=== PATIENT | male | born 1970 | race Asian ===

== ENCOUNTER 2017-06-13 15:40 | Inpatient (IN) | payer SELFPAY ==
[~2017-06-13] VITALS: Ht 182.9 cm; Wt 77.1 kg
[2017-06-13] MEDS ORDERED: ASPIRIN 81 MG CHEW PO ONE (15:55)
[2017-06-13] MEDS ORDERED: NS(*) 0.9% 1000 ML BAG 1,000 ML IV ONE (15:55)
[2017-06-13] MEDS ORDERED: ONDANSETRON 4 MG/2 ML VIAL IVP ONE (15:55)
[2017-06-13] MEDS ORDERED: fentaNYL CITR 100 MCG/2 ML AMP IVP ONE ×2 (15:55→16:35)
--- NOTE | 2017-06-13 16:04 | ER Report ---
History and Physical Time Seen By MD: 15:48 Hx. of Stated Complaint: pt has chest pain yesterday; today pain started in his back HPI/ROS CHIEF COMPLAINT: Chest pain HISTORY OF PRESENT ILLNESS: This is a 46-year-old male who presents to the emergency department for chest pain. The patient states the chest pain began while he was in [place] yesterday progressively getting worse. Today the pain was so intense it started causing some discomfort in his back and shortness of breath, he decided to come in for evaluation. The patient arrives holding his left chest, grimacing. The pain seems to be intermittent. He does state that he has had some chills no fevers. The patient denies nausea or vomiting. No abdominal pain, diarrhea or urinary symptoms. REVIEW OF SYSTEMS: Constitutional: As above. Eyes: No discharge. ENT: No sore throat. Cardiovascular: As above. Respiratory: As above. Gastrointestinal: No abdominal pain, no vomiting. Genitourinary: No hematuria. Musculoskeletal: As above. Skin: No rashes. Neurological: No headache. Allergies: Coded Allergies: No Known Drug Allergies (Unverified , 06/13/17) Home Meds No Active Prescriptions or Reported Meds Past Medical/Surgical History Patient has no significant past medical or surgical history. Reviewed Nurses Notes: Yes Hx Substance Use Disorder: No Hx Alcohol Use: No Constitutional Vital Sign - Last 24 Hours 06/13/17 06/13/17 06/13/17 06/13/17 15:44 15:44 15:45 15:50 Temp 99.3 Pulse 109 104 103 Resp 19 57 B/P (MAP) 166/100 166/100 (122) Pulse Ox 95 93 94 O2 Delivery Room Air 06/13/17 06/13/17 06/13/17 06/13/17 15:55 16:00 16:05 16:10 Pulse 101 100 100 95 Resp 34 37 37 29 B/P (MAP) 136/88 (104) Pulse Ox 94 95 94 91 06/13/17 06/13/17 06/13/17 06/13/17 16:15 16:20 16:25 16:30 Pulse 98 97 98 95 Resp 45 49 B/P (MAP) 126/77 (93) Pulse Ox 89 87 88 89 06/13/17 06/13/17 06/13/17 06/13/17 16:35 16:40 16:45 16:50 Pulse 99 95 99 104 Resp 143 Pulse Ox 88 89 89 89 06/13/17 06/13/17 06/13/17 06/13/17 16:55 17:00 17:00 17:05 Pulse 97 98 99 B/P (MAP) 106/67 (80) Pulse Ox 87 93 93 O2 Flow Rate 1.5 06/13/17 06/13/17 06/13/17 06/13/17 18:00 18:05 18:30 18:35 Pulse 89 84 B/P (MAP) 121/76 (91) 128/82 (97) Pulse Ox 95 94 06/13/17 06/13/17 19:00 19:05 Pulse 81 B/P (MAP) 115/76 (89) Intake and Output 06/13/17 06/13/17 06/14/17 15:00 23:00 07:00 Intake Total 1000 ml Balance 1000 ml Physical Exam General Appearance: The patient is alert, has no immediate need for airway protection and no signs of toxicity, anxious and grimacing Eyes: Pupils equal and round no pallor or injection. ENT, Mouth: Mucous membranes are moist. Respiratory: There are no retractions, diminished left lower lung sounds, all other june clear to auscultation. Cardiovascular: Regular rate and rhythm, no murmurs, clicks or rubs. No carotid bruits Gastrointestinal: Abdomen is soft and non tender, no masses, bowel sounds normal. Neurological: Alert and oriented 4. Moving all extremities. Following all commands. No focal neuro deficits. Skin: Warm and dry, no rashes. Musculoskeletal: Neck is supple non tender. Extremities are nontender, nonswollen and have full range of motion. DIFFERENTIAL DIAGNOSIS: After history and physical exam differential diagnosis was considered for chest pain including but not limited to myocardial ischemia, pericarditis pulmonary embolus, chest wall pain, pleural inflammation and pulmonary infectious causes. Medical Decision Making Data Points Result Diagram: 06/13/17 1547 06/13/17 1547 Laboratory Hematology Test 06/13/17 15:47 06/13/17 15:50 06/13/17 18:15 06/13/17 18:22 Red Blood Count 5.40 M/uL (4.00-5.60) Mean Corpuscular Volume 88.1 fL (80.0-96.0) Mean Corpuscular Hemoglobin 30.5 pg (26.0-33.0) Mean Corpuscular Hemoglobin Concent 34.7 g/dL (32.0-36.0) Red Cell Distribution Width 12.7 % (11.5-14.5) Mean Platelet Volume 7.3 fL (7.2-11.1) Neutrophils (%) (Auto) 83.5 % (39.4-72.5) Lymphocytes (%) (Auto) 7.9 % (17.6-49.6) Monocytes (%) (Auto) 8.4 % (4.1-12.4) Eosinophils (%) (Auto) 0.1 % (0.4-6.7) Basophils (%) (Auto) 0.1 % (0.3-1.4) Nucleated RBC Relative Count (auto) 0.2 /100WBC Neutrophils # (Auto) 17.5 K/uL (2.0-7.4) Lymphocytes # (Auto) 1.7 K/uL (1.3-3.6) Monocytes # (Auto) 1.8 K/uL (0.3-1.0) Eosinophils # (Auto) 0.0 K/uL (0.0-0.5) Basophils # (Auto) 0.0 K/uL (0.0-0.1) Nucleated RBC Absolute Count (auto) 0.04 K/uL Peripheral Blood Smear Yes Y/N Sodium Level 135 mmol/L (137-145) Potassium Level 3.7 mmol/L (3.5-5.0) Chloride Level 99 mmol/L (98-107) Carbon Dioxide Level 23 mmol/L (22-30) Blood Urea Nitrogen 16 mg/dl (9-21) Creatinine 1.00 mg/dl (0.66-1.25) Glomerular Filtration Rate Calc > 60.0 Random Glucose 120 mg/dl (75-110) Calcium Level 9.0 mg/dl (8.4-10.2) Total Bilirubin 1.5 mg/dl (0.2-1.3) Aspartate Amino Transf (AST/SGOT) 23 U/L (0-35) Alanine Aminotransferase (ALT/SGPT) 54 U/L (0-56) Alkaline Phosphatase 95 U/L (0-126) Troponin I < 0.012 ng/ml Total Protein 8.3 gm/dl (6.3-8.2) Albumin 4.5 g/dl (3.5-5.0) Influenza Type A Antigen Negative (NEGATIVE) Influenza Type B Antigen Negative (NEGATIVE) Lactate 1.5 mmol/L (0.7-2.1) Urine Color Yellow Urine Clarity Clear Urine pH 6.0 pH (4.8-9.5) Urine Specific [place] 1.027 Urine Protein Negative mg/dL (NEGATIVE) Urine Glucose (UA) Negative mg/dL (NEGATIVE) Urine Ketones Negative mg/dL (NEGATIVE) Urine Blood Negative (NEGATIVE) Urine Nitrite Negative (NEGATIVE) Urine Bilirubin Negative (NEGATIVE) Urine Urobilinogen Negative mg/dL (0.2-1.9) Urine Leukocyte Esterase Negative (NEGATIVE) Urine RBC <1 /HPF (0-2/HPF) Urine WBC 1 /HPF (0-5/HPF) Urine Squamous Epithelial Cells None /LPF (</=FEW) Urine Bacteria Negative /HPF (NONE-FEW) Urine Mucus Few /HPF (NONE-FEW) Chemistry Test 06/13/17 15:47 06/13/17 15:50 06/13/17 18:15 06/13/17 18:22 White Blood Count 21.0 k/uL (4.5-11.0) Red Blood Count 5.40 M/uL (4.00-5.60) Hemoglobin 16.5 g/dL (14.0-18.0) Hematocrit 47.6 % (42.0-52.0) Mean Corpuscular Volume 88.1 fL (80.0-96.0) Mean Corpuscular Hemoglobin 30.5 pg (26.0-33.0) Mean Corpuscular Hemoglobin Concent 34.7 g/dL (32.0-36.0) Red Cell Distribution Width 12.7 % (11.5-14.5) Platelet Count 309 K/uL (150-450) Mean Platelet Volume 7.3 fL (7.2-11.1) Neutrophils (%) (Auto) 83.5 % (39.4-72.5) Lymphocytes (%) (Auto) 7.9 % (17.6-49.6) Monocytes (%) (Auto) 8.4 % (4.1-12.4) Eosinophils (%) (Auto) 0.1 % (0.4-6.7) Basophils (%) (Auto) 0.1 % (0.3-1.4) Nucleated RBC Relative Count (auto) 0.2 /100WBC Neutrophils # (Auto) 17.5 K/uL (2.0-7.4) Lymphocytes # (Auto) 1.7 K/uL (1.3-3.6) Monocytes # (Auto) 1.8 K/uL (0.3-1.0) Eosinophils # (Auto) 0.0 K/uL (0.0-0.5) Basophils # (Auto) 0.0 K/uL (0.0-0.1) Nucleated RBC Absolute Count (auto) 0.04 K/uL Peripheral Blood Smear Yes Y/N Glomerular Filtration Rate Calc > 60.0 Calcium Level 9.0 mg/dl (8.4-10.2) Total Bilirubin 1.5 mg/dl (0.2-1.3) Aspartate Amino Transf (AST/SGOT) 23 U/L (0-35) Alanine Aminotransferase (ALT/SGPT) 54 U/L (0-56) Alkaline Phosphatase 95 U/L (0-126) Troponin I < 0.012 ng/ml Total Protein 8.3 gm/dl (6.3-8.2) Albumin 4.5 g/dl (3.5-5.0) Influenza Type A Antigen Negative (NEGATIVE) Influenza Type B Antigen Negative (NEGATIVE) Lactate 1.5 mmol/L (0.7-2.1) Urine Color Yellow Urine Clarity Clear Urine pH 6.0 pH (4.8-9.5) Urine Specific [place] 1.027 Urine Protein Negative mg/dL (NEGATIVE) Urine Glucose (UA) Negative mg/dL (NEGATIVE) Urine Ketones Negative mg/dL (NEGATIVE) Urine Blood Negative (NEGATIVE) Urine Nitrite Negative (NEGATIVE) Urine Bilirubin Negative (NEGATIVE) Urine Urobilinogen Negative mg/dL (0.2-1.9) Urine Leukocyte Esterase Negative (NEGATIVE) Urine RBC <1 /HPF (0-2/HPF) Urine WBC 1 /HPF (0-5/HPF) Urine Squamous Epithelial Cells None /LPF (</=FEW) Urine Bacteria Negative /HPF (NONE-FEW) Urine Mucus Few /HPF (NONE-FEW) Urinalysis Test 06/13/17 18:22 Urine Color Yellow Urine Clarity Clear Urine pH 6.0 pH (4.8-9.5) Urine Specific [place] 1.027 Urine Protein Negative mg/dL (NEGATIVE) Urine Glucose (UA) Negative mg/dL (NEGATIVE) Urine Ketones Negative mg/dL (NEGATIVE) Urine Blood Negative (NEGATIVE) Urine Nitrite Negative (NEGATIVE) Urine Bilirubin Negative (NEGATIVE) Urine Urobilinogen Negative mg/dL (0.2-1.9) Urine Leukocyte Esterase Negative (NEGATIVE) Urine RBC <1 /HPF (0-2/HPF) Urine WBC 1 /HPF (0-5/HPF) Urine Squamous Epithelial Cells None /LPF (</=FEW) Urine Bacteria Negative /HPF (NONE-FEW) Urine Mucus Few /HPF (NONE-FEW) EKG/Imaging EKG Interpretation 12 lead EKG: Rhythm: Sinus tachycardia with first-degree AV block. 105 BPM. Calvin: normal QRS: normal ST segments: normal It is noted patient has an S1, Q3, T3 on his EKG. Imaging [place] [facility] [place] NAME: Kip Coats : 1970 MR: [id number] V: [id number] EXAM DATE: ORDERING PHYSICIAN: HERON COLÓN TECHNOLOGIST: Location: [facility] Patient: Kip Coats : 1970 Visit/Account:[id number] Date of Sevice: 06/13/2017 EXAMINATION: CTA of the chest with IV contrast HISTORY: Evaluate for pulmonary embolism. Tachycardia. Abnormal EKG. COMPARISON: None. TECHNIQUE: Pulmonary embolus protocol - Thin-slice axial imaging of the chest was performed during maximal pulmonary arterial opacification with intravenous nonionic iodinated contrast. 3D coronal slab MIPs and 2D reconstructions in the coronal and sagittal planes were performed to aid in pulmonary embolus detection. Assistant Operations Manager images have been stored on PACS. CONTRAST: 150 mL of IV Isovue-370 One of the following dose optimization techniques was utilized in the performance of this exam: Automated exposure control; adjustment of the mA and/ or kV according to the patient's size; or use of an iterative reconstruction technique. Specific details can be referenced in the facility's radiology CT exam operational policy. FINDINGS: CTA CHEST: Please note that this exam is optimized for assessment of the pulmonary arteries and is not intended as a diagnostic study of the thoracic aorta, coronary arteries or venous structures. Angiographic Findings: Pulmonary arteries: Images are degraded by respiratory motion artifact and mixing artifact, despite repeat attempt. No definite filling defect is seen within the pulmonary arteries. Other vasculature: Negative. Additional non-angiographic findings: Lungs / Pleura: Small left pleural effusion measuring 2.7 cm in thickness. Atelectasis in the left lung base along the pleural effusion. Mediastinum / Lou: Negative. Heart / Pericardium: Small pericardial effusion. Musculoskeletal / Body wall: Negative. Lymph node assessment: Negative. Upper abdomen: Negative. Lower neck: Negative. IMPRESSION: Images are degraded by motion artifact and contrast mixing artifact which limits evaluation. No definite evidence of pulmonary embolism. Small left pleural effusion with atelectasis in the adjacent left lung base. Underlying infiltrate/pneumonia in the left lung base is not excluded. Small pericardial effusion. Report Dictated By: Claudio Rubi MD at 06/13/2017 5:52 PM Report E-Signed By: Claudio Rubi MD at 06/13/2017 6:15 PM [id number] ED Course/Re-evaluation Clinical Indication for ER IV: Hydration, IV Access ED Course The patient was admitted to a room. A history physical were obtained. Differential diagnoses considered. An IV was started. A 1 L normal saline bolus was given. A CBC, CMP, troponin, lactate, blood cultures and UA were obtained. CBC showing 21,000 white count with a left shift, negative troponin. Negative influenza, negative UA. The patient was given 50 g IV fentanyl 2, 4 mg IV Zofran, 0.5 mg Dilaudid, 15 mg IV Toradol. Patient was also given 325 mg baby aspirin. As well as nitroglycerin. Patient was also given a GI cocktail. EKG showing a first-degree AV block, no ST changes, sinus tachycardia. Patient did have intermittent relief with medications. A CTA showing a left pleural effusion , atelectasis, possible pneumonia, and a small pericardial effusion. I did review the CT and laboratory results with the patient. The patient was willing to admit to the hospital. I did speak with Dr. Souza as noted below and the patient was admitted to the medical surgical unit for observation. I did not start patient on antibiotics at this time. At the time of admission the patient was more comfortable, and less anxious. The patient had no other questions or concerns at the time of admission. 06/13/2017 6:39:42 pm to Souza regarding the patient's case, he will come down and talk with the patient's and evaluate the patient for a possible admission. He also suggested trying a GI cocktail. 06/13/2017 7:26:45 pm Souza did come down to evaluate the patient and has elected to patient to the medical surgical unit. Decision to Disposition Date: Jun 13, 2017 Decision to Disposition Time: 19:26 Depart Departure Latest Vital Signs Vital Signs Date Time Temp Pulse Resp B/P (MAP) Pulse Ox O2 Delivery O2 Flow Rate FiO2 06/13/17 19:05 81 06/13/17 19:00 115/76 (89) 06/13/17 18:35 94 06/13/17 17:00 1.5 06/13/17 16:50 143 06/13/17 15:44 99.3 Room Air Impression: Primary Impression: Pleurisy Condition: Improved Disposition: Admitted from ER New Scripts No Active Prescriptions or Reported Meds HERON COLÓN PURCHASE REQUEST EDITOR-BC Jun 13, 2017 16:03
[2017-06-13] MEDS ORDERED: NS 0.9% 50 ML VIAL 100 ML ONE ×2 (16:08→17:45)
[2017-06-13] MEDS ORDERED: IOPAMIDOL 76% 75 ML INFUS BTL 75 ML ONE ×2 (16:08→17:45)
[2017-06-13 16:11] LABS: PLATELET COUNT, AUTOMATED 309 K/uL (150-450)
[2017-06-13] MEDS ORDERED: KETOROLAC 15 MG/ML VIAL IVP ONE (16:35)
[2017-06-13] MEDS ORDERED: NITROGLYCERIN 0.4 MG SUBL SL ONE (16:50)
--- NOTE | 2017-06-13 17:17 | EKG ---
FACILITY: [facility] PATIENT NAME: LINDSAY JONES : [id number] MR: [id number] V: [id number] EXAM DATE: ORDERING PHYSICIAN: HERON COLÓN TECHNOLOGIST: Test Reason : CARDIA Blood Pressure : / mmHG Vent. Rate : 105 BPM Atrial Rate : 105 BPM P-R Int : 212 ms QRS Dur : 104 ms QT Int : 336 ms P-R-T Axes : 046 002 018 degrees QTc Int : 444 ms Sinus tachycardia with 1st degree AV block Otherwise normal ECG No previous ECGs available Confirmed by LOU JOHNSON ([id number]) on 06/14/2017 6:38:58 AM Referred By: Confirmed By:LOU JOHNSON
--- NOTE | 2017-06-13 18:19 | RADIOLOGY IMAGING REPORT ---
FACILITY: [facility] PATIENT NAME: Kip Coats : 1970 MR: [id number] V: [id number] EXAM DATE: ORDERING PHYSICIAN: HERON COLÓN TECHNOLOGIST: Location: [facility] Patient: Kip Coats : 1970 Visit/Account:[id number] Date of Sevice: 06/13/2017 EXAMINATION: CTA of the chest with IV contrast HISTORY: Evaluate for pulmonary embolism. Tachycardia. Abnormal EKG. COMPARISON: None. TECHNIQUE: Pulmonary embolus protocol - Thin-slice axial imaging of the chest was performed during maximal pulmonary arterial opacification with intravenous nonionic iodinated contrast. 3D coronal sla b MIPs and 2D reconstructions in the coronal and sagittal planes were performed to aid in pulmonary e mbolus detection. Master Baker images have been stored on PACS. CONTRAST: 150 mL of IV Isovue-370 One of the following dose optimization techniques was utilized in the performance of this exam: Autom ated exposure control; adjustment of the mA and/or kV according to the patient's size; or use of an i terative reconstruction technique. Specific details can be referenced in the facility's radiology C T exam operational policy. FINDINGS: CTA CHEST: Please note that this exam is optimized for assessment of the pulmonary arteries and is not intended as a diagnostic study of the thoracic aorta, coronary arteries or venous structures. Angiographic Findings: Pulmonary arteries: Images are degraded by respiratory motion artifact and mixing artifact, despite r epeat attempt. No definite filling defect is seen within the pulmonary arteries. Other vasculature: Negative. Additional non-angiographic findings: Lungs / Pleura: Small left pleural effusion measuring 2.7 cm in thickness. Atelectasis in the left lung base along the pleural effusion. Mediastinum / Lou: Negative. Heart / Pericardium: Small pericardial effusion. Musculoskeletal / Body wall: Negative. Lymph node assessment: Negative. Upper abdomen: Negative. Lower neck: Negative. IMPRESSION: Images are degraded by motion artifact and contrast mixing artifact which limits evaluation. No defin ite evidence of pulmonary embolism. Small left pleural effusion with atelectasis in the adjacent left lung base. Underlying infiltrate/pn eumonia in the left lung base is not excluded. Small pericardial effusion. Report Dictated By: Claudio Rubi MD at 06/13/2017 5:52 PM Report E-Signed By: Claudio Rubi MD at 06/13/2017 6:15 PM [id number]
[2017-06-13] MEDS ORDERED: MAG HYD/AL HYD/SIMETH 30ML UDC PO ONE (18:40)
[2017-06-13] MEDS ORDERED: LIDOCAINE 2% VISC SLN 15ML UDC PO ONE (18:40)
[2017-06-13] MEDS ORDERED: HYDROmorphone(ER ONLY) 1 MG/ML IVP ONE (18:55)
[2017-06-13] MEDS ORDERED: NALOXONE HCL 0.4 MG/ML VIAL IVP PRN (19:30)
[2017-06-13] MEDS ORDERED: ACETAMINOPHEN 500 MG TAB PO PRN (19:30)
--- NOTE | 2017-06-13 19:59 | History & Physical ---
History of Present Illness History of Present Illness 46yo male with no significant PMHx who came to the ER for pleuritic chest pain. About a week ago, he had 2 days of a cough and chills. He then got better. He was doing well yesterday afternoon, but at about 9pm he developed chest pain. It starts on the left but goes across to the right in front and is across the whole back. It is much worse with coughing. He had progressively worsening pain throughout the day today. He has had some chills today. No reported n/v/diarrhea. No sick contacts. He doesn't smoke. 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 In the ER, he received Toradol, NTG, Fentanyl x2, Dilaudid, ASA and a GI cocktail. He certainly had improvement with the narcotic medication, but it is unclear if the Toradol helped because it was given at the same time as one dose of Fentanyl. History Home Meds No Active Prescriptions or Reported Meds Allergies: Coded Allergies: No Known Drug Allergies (Unverified , 06/13/17) Other Social/Family Hx See HPI. No tobacco or alcohol use. Hx Alcohol Use: No Review of Systems All Systems Reviewed/Normal: Yes, Except as Noted Exam Vital Signs Vital Signs Date Time Temp Pulse Resp B/P (MAP) Pulse Ox O2 Delivery O2 Flow Rate FiO2 06/13/17 19:30 111/68 (82) 06/13/17 19:05 81 06/13/17 18:35 94 06/13/17 17:00 1.5 06/13/17 16:50 143 06/13/17 15:44 99.3 Room Air General Appearance: Alert, Awake, Other (Taking shallow breaths. Looks mildly uncomfortable, but with coughing he is more uncomforable.) Neuro: No Gross deficits Eyes: PERRLA ENT: Moist Mucous Membranes Cardiovascular: Regular Rate and Rhythm (no m/r/g) Respiratory: Clear to Auscultation (But not taking deep breaths. Moving air fairly well for the shallow breaths.) GI: Abd Soft and Non-Tender Extremities: No Edema Integumentary: No Jaundice, No Cyanosis Medical Decision Making Data Points Result Diagram: 06/13/17 1547 06/13/17 1547 Item Value Date Time Lactate 1.5 mmol/L 06/13/17 1815 Calcium Level 9.0 mg/dl 06/13/17 1547 Total Bilirubin 1.5 mg/dl H 06/13/17 1547 Aspartate Amino Transf (AST/SGOT) 23 U/L 06/13/17 1547 Alanine Aminotransferase (ALT/SGPT) 54 U/L 06/13/17 1547 Alkaline Phosphatase 95 U/L 06/13/17 1547 Troponin I < 0.012 ng/ml 06/13/17 1547 White Blood Count 21.0 k/uL H 06/13/17 1547 Neutrophils (%) (Auto) 83.5 % H 06/13/17 1547 Lymphocytes (%) (Auto) 7.9 % L 06/13/17 1547 Monocytes (%) (Auto) 8.4 % 06/13/17 1547 Eosinophils (%) (Auto) 0.1 % L 06/13/17 1547 Basophils (%) (Auto) 0.1 % L 06/13/17 1547 Neutrophils # (Auto) 17.5 K/uL H 06/13/17 1547 Nucleated RBC Relative Count (auto) 0.2 /100WBC 06/13/17 1547 Hemoglobin 16.5 g/dL 06/13/17 1547 Mean Corpuscular Volume 88.1 fL 06/13/17 1547 Platelet Count 309 K/uL 06/13/17 1547 Influenza Type A Antigen Negative 06/13/17 1550 Influenza Type B Antigen Negative 06/13/17 1550 Urine RBC <1 /HPF 06/13/17 1822 Urine WBC 1 /HPF 06/13/17 1822 Urine Nitrite Negative 06/13/17 1822 Urine Specific [place] 1.027 06/13/17 1822 EKG / Imaging EKG Interpretation Sinus tachycardia. No ST abnormalities. T flattening/inversion inferiorly. Imaging CTA of chest - Images are degraded by motion artifact and contrast mixing artifact which limits evaluation. No definite evidence of pulmonary embolism. Small left pleural effusion with atelectasis in the adjacent left lung base. Underlying infiltrate/pneumonia in the left lung base is not excluded. Small pericardial effusion. Assessment and Plan Problems: (1) Pleurisy Status: Acute Assessment & Plan: He presented with pleuritic chest pain that is worse on the left but bilateral with a CT showing a small left sided effusion and infiltrate on the left. There is a small pericardial effusion. His symptoms started about 24 hours prior to admission. No PE and troponin is negative. ECG with only tachycardia and T flattening inferiorly. He had an URI about for 2 days about a week ago. He did have chills and an elevated WBC today. He doesn't appear toxic and the pericardial effusion is likely reactive rather than empyema. Will follow symptoms and he might need a chest tube if he doesn't improve or worsens. 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 CRP in the morning. (2) Pneumonia Status: Acute Assessment & Plan: On CT it appears that he has a left sided basilar infiltrate. He has an elevated WBC. BP is stable. P is borderline high with pain. Afebrile. Ceftriaxone IV and PO azithromycin. Recheck labs in the morning. Venous Thromboembolism Antithrombotics Is Pt On Any Antithrombotics?: No Exam Sepsis Risk: No Definite Risk LOU JOHNSON MD Jun 13, 2017 19:59
[2017-06-13 20:11] VITALS: BP 132/78
[2017-06-13] MEDS: MORPHINE 1 MG/ML 30 ML PCA IV PRN (20:37)
[2017-06-13] MEDS: cefTRIAXone 2 GM VIAL IVP SCH (20:49)
[2017-06-13] MEDS ORDERED: AZITHROMYCIN 250 MG TAB PO SCH (21:00)
[2017-06-13 22:38] VITALS: BP 129/79
[2017-06-13] MEDS: KETOROLAC 30 MG/ML VIAL IVP SCH (23:41)
[2017-06-14] MEDS: KETOROLAC 30 MG/ML VIAL IVP SCH ×4 (04:22→22:36)
[2017-06-14] MEDS: MORPHINE 1 MG/ML 30 ML PCA IV PRN ×2 (04:22→22:35)
[2017-06-14 04:24] VITALS: BP 106/73
[2017-06-14 05:57] LABS: PLATELET COUNT, AUTOMATED 234 K/uL (150-450)
[2017-06-14 07:52] VITALS: BP 109/68
[2017-06-14] MEDS ORDERED: methylPREDNIS SUCC 125 MG/2ML IVP ONE (09:15)
[2017-06-14] MEDS: ENOXAPARIN 40 MG/0.4ML SYR SC SCH (09:24)
--- NOTE | 2017-06-14 09:28 | Hospitalist Progress Note ---
Subjective Progress Notes Subjective Still having significant pain. Unable to take deep breaths effectively. No significant fever this AM. Physical Exam Vital Signs Date Time Temp Pulse Resp B/P (MAP) Pulse Ox O2 Delivery O2 Flow Rate FiO2 06/14/17 08:15 92 Nasal Cannula 1.0 06/14/17 07:52 98.7 84 22 109/68 (82) General Appearance: Alert, Awake Neuro: No Gross deficits ENT: Oropharynx Clear Cardiovascular: Regular Rate and Rhythm Respiratory: Other (diminished breath sounds at bases due to poor effort/few rales on left mid-lung field) Chest: No Tenderness GI: Soft and Non-Tender Extremities: Warm, Perfused Psych: Alert & Oriented X3 Result Diagram: 06/14/1751906/14/17519 Assessment and Plan Problems: (1) Pneumonia Status: Acute Assessment & Plan: On CT it appears that he has a left sided basilar infiltrate and small effusion. He had an elevated WBC. No significant fever today. He still has dramatic pain. He is on Ceftriaxone IV and azithromycin. Re -check labs shows improved WBC count. Will re-check CXR to see if any increase in the effusion or infiltrate. Will work on deep breathing exercises. (2) Pleurisy Status: Acute Assessment & Plan: He presented with pleuritic chest pain that is worse on the left with CT showing a small left sided effusion and infiltrate on the left. There is a small pericardial effusion. His symptoms started about 24 hours prior to admission. No PE seen on CT PA and troponin is negative. ECG with only tachycardia and T flattening inferiorly. He had an URI about for 2 days about a week ago. He did have chills and an elevated WBC. He doesn't appear toxic and the pericardial effusion is likely reactive. He is on Morphine BIRD TENDER, scheduled Toradol and APAP prn for pain. Will add IV Solu-Medrol. Work with RT on getting him to take deep breaths/clear secretions. Re-check CXR as well. Exam Sepsis Risk: Sepsis Risk DESI LORENZ MD Jun 14, 2017 09:28
--- NOTE | 2017-06-14 09:38 | Antimicrobial Stewardship ---
Antimicrobial Stewardship MD Service: Hospitalist Indications: CAP, Other (L pleural effusion) Antimicrobial Used Ceftriaxone and Azithromycin started 06/13/17 Duration of Therapy: 5 Days Start Date: Jun 13, 2017 Height (Calculated Centimeters: [phone] Weight (Calculated Kilograms): 83.461 Comments 46 yo M presented with SOB and chest pain, afebrile, WBC were 21 on 06/13/17, today down to 13. CTA ruled out acute PE, showed L pleural effusion and LLL infiltrate. Antibiotics: 06/13/17: Started azithromycin 500mg po daily and ceftriaxone 2g IV daily, recommended treatment duration is 5 days for CAP. 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 Continue present management. Suni Perrin, PharmD, OP SUNI PERRIN Jun 14, 2017 09:38
[2017-06-14 09:41] VITALS: BMI 24.9
--- NOTE | 2017-06-14 11:14 | RADIOLOGY IMAGING REPORT ---
FACILITY: [facility] PATIENT NAME: Kip Coats : 1970 MR: [id number] V: [id number] EXAM DATE: ORDERING PHYSICIAN: DESI LORENZ TECHNOLOGIST: Location: [facility] - [place] Patient: Kip Coats : 1970 Visit/Account:[id number] Date of Sevice: 06/14/2017 Exam type: CHEST PA AND LAT History: LLL infiltrate/effusion Comparison: CTA chest and right 2017. Findings: There is a small left pleural effusion that appears partially loculated in the major fissure. There is increasing airspace consolidation in the left lung base with air bronchograms present when compare d to the CT there also appears to be a small amount of linear stranding the right lung base as well w hich has increased in the interim. The cardiac silhouette is normal in size. IMPRESSION: 1. Small left pleural effusion that appears partially loculated in the major fissure There is increasing airspace consolidation in the lung bases. In the right lung base there is mild l inear consolidation which may represent atelectasis or developing infiltrates. In the left lung base there is a large wedge-shaped area of consolidation concerning for increasing atelectasis and or inf iltrate Report Dictated By: Sakina Naik MD at 06/14/2017 11:05 AM Report E-Signed By: Sakina Naik MD at 06/14/2017 11:08 AM WSN:[email or web address]
[2017-06-14 15:23] VITALS: BP 110/68
--- NOTE | 2017-06-14 19:01 | General Surgery Consultation ---
History of Present Illness Requesting Physician dr hyman Reason for Consult left pleural effusion Chief Complaint left chest pain. History of Present Illness 46 yo male with left chest pain. pt underwent ct which showed a left pleural effusion and atelectasis/ infiltrate. repeat ct shows increase in size of effusion History Home Meds No Active Prescriptions or Reported Meds Allergies: Coded Allergies: No Known Drug Allergies (Unverified , 06/13/17) Exam Vital Signs Vital Signs Date Time Temp Pulse Resp B/P (MAP) Pulse Ox O2 Delivery O2 Flow Rate FiO2 06/14/17 15:23 98.5 85 24 110/68 (82) 91 Nasal Cannula 1.0 General Appearance: Alert, Awake Chest: Other (decreased breath sounds left lung base) Medical Decision Making Data Points Result Diagram: 06/14/17 0520 06/14/17 0520 Assessment and Plan Problems: (1) Pleural effusion, left Assessment & Plan: will try to place a left pleural catheter to drain effusion and analyze the fluid. Copies to: NATHALIE CERNA MD Venous Thromboembolism Antithrombotics Is Pt On Any Antithrombotics?: No NATHALIE CERNA MD Jun 14, 2017 19:01
--- NOTE | 2017-06-14 20:16 | Post Operative Progress Note ---
Post Operative Progress Note Date: Jun 14, 2017 Time: 20:15 Surgeon: pj Anesthesia: local Pre-Op Diagnosis: left pleural effusion Post-Op Diagnosis: same Procedure(s): left pleural drainage catheter placement NATHALIE CERNA MD Jun 14, 2017 20:16
--- NOTE | 2017-06-14 20:22 | RADIOLOGY IMAGING REPORT ---
FACILITY: [facility] - [place] PATIENT NAME: Kip Coats : 1970 MR: [id number] V: [id number] EXAM DATE: ORDERING PHYSICIAN: NATHALIE CERNA TECHNOLOGIST: Location: [facility] [place] Patient: Kip Coats : 1970 Visit/Account:[id number] Date of Sevice: 06/14/2017 Examination: CHEST SINGLE AP Comparison: Earlier the same day. History: Chest tube placement. Findings: A pigtail catheter is now present in the left lower hemithorax. Small but decreased left pl eural effusion with left lung base volume loss versus consolidation. No pneumothorax. No new or enlar ging consolidation on the right. Visualized portions of the cardiac and hilar contour are unchanged. Nonspecific prominent gas-filled loops of bowel in the visualized upper abdomen. Osseous structures a re intact. IMPRESSION: 1. Left chest tube placement with decreased pleural fluid. 2. Left lung base volume loss versus consolidation. 3. No pneumothorax. Report Dictated By: Brad Nicole MD at 06/14/2017 8:14 PM Report E-Signed By: Brad Nicole MD at 06/14/2017 8:18 PM WSN:[id number]
[2017-06-14] MEDS: AZITHROMYCIN(*) 500 MG 500 MG in NS(*) 0.9% 250 ML BAG 250 ML IVPB SCH (20:47)
[2017-06-14] MEDS: cefTRIAXone 2 GM VIAL IVP SCH (20:47)
--- NOTE | 2017-06-14 21:15 | RADIOLOGY IMAGING REPORT ---
FACILITY: [facility] - [place] PATIENT NAME: Kip Coats : 1970 MR: [id number] V: [id number] EXAM DATE: ORDERING PHYSICIAN: DESI LORENZ TECHNOLOGIST: Location: [facility] Patient: Kip Coats : 1970 Visit/Account:[id number] Date of Sevice: 06/14/2017 EXAMINATION: CT chest without IV contrast HISTORY: Empyema, left chest pain. TECHNIQUE: Axial CT images of the chest were obtained without IV contrast, with coronal and sagitta l 2D reconstructed images. One of the following dose optimization techniques was utilized in the performance of this exam: Autom ated exposure control; adjustment of the mA and/or kV according to the patient's size; or use of an i terative reconstruction technique. Specific details can be referenced in the facility's radiology C T exam operational policy. COMPARISON: Chest radiograph of earlier today. CTA chest with contrast 06/13/2017. FINDINGS: Lungs and pleura: There is a complex loculated pleural fluid collection in the posterior left chest, increased in volume from the prior CT of yesterday. This measures up to 4.5 cm in AP thickness poste rior to the left lower lobe, extending from the lung base superior to the level of the major fissure. No visualized pleural gas. There is adjacent consolidation and volume loss in the left lower lobe wh ich may represent a combination of atelectasis and pneumonia. The central airways are patent. There is mild streaky and linear opacity in the right lung base, likely atelectasis, with a trace anuradha unt of right-sided pleural fluid. No pneumothorax. Mediastinum and cherie: Negative. Heart, aorta, and great vessels: Normal caliber thoracic aorta. Normal heart size. No pericardial ef fusion. Chest lymph node assessment: Negative. Bones: Negative. Chest wall: Negative. Lower neck: Negative. Upper abdomen: Fatty infiltration of the liver. IMPRESSION: 1. Complex loculated pleural fluid collection in the posterior left chest. This may be compatible wit h empyema as clinically reported. Volume of pleural fluid has moderately increased since the prior ch est CTA. 2. Adjacent consolidation and volume loss in the left lower lobe may represent a combination of compr essive atelectasis and pneumonia. 3. Mild streaky and linear opacity in the right lung base, likely atelectasis, with a trace amount of right-sided pleural fluid. Report Dictated By: Michael Hsu MD at 06/14/2017 9:04 PM Report E-Signed By: Michael Hsu MD at 06/14/2017 9:11 PM WSN:[id number]
[2017-06-14 23:00] VITALS: BP 114/63
[2017-06-15 03:04] VITALS: BP 127/79
--- NOTE | 2017-06-15 04:14 | OPERATIVE REPORT 1 ---
EVENT DATE: June 14, 2017 SURGEON: Tay Sandoval MD ANESTHESIOLOGIST: None. ANESTHESIA: Local. PREOPERATIVE DIAGNOSIS Left pleural effusion. POSTOPERATIVE DIAGNOSIS Left pleural effusion. PROCEDURE PERFORMED Left pleural catheter placement. DESCRIPTION OF PROCEDURE Patient was placed in the sitting position. Left chest was then examined with the ultrasound by the tech. A good fluid collection was noted laterally posteriorly on the left. This area was then marked. We prepped and draped the skin in sterile fashion, anesthetized the skin with 1% Xylocaine, made a karla in the skin with a #11 blade. We then passed the original catheter into position. The needle was removed and good fluid was returned. We then passed the guide wire. Needle was removed. We then passed the dilator over the guide wire. We dilated to 10 Welsh. We then placed the 10 Welsh pigtail catheter over the guide wire, threaded it into position, removed the guide wire, removed the needle out of the pigtail catheter, advanced the catheter into position. We then pulled on the string to secure the curl in the tip of the catheter. We returned some serous fluid that was a little bloody. We got about 80 mL out. Specimen was sent for culture. We then hooked the catheter to a suction drain, and then portable chest x-ray was obtained to show the catheter in the lower chest. Patient tolerated the procedure well, no apparent complication. [facility]PITAL[facility]
[2017-06-15] MEDS: KETOROLAC 30 MG/ML VIAL IVP SCH ×4 (05:34→22:21)
--- NOTE | 2017-06-15 05:34 | General Surgery Progress Note ---
Subjective Progress Notes Subjective no complaints, pain controlled. slept ok Physical Exam Vital Signs Date Time Temp Pulse Resp B/P (MAP) Pulse Ox O2 Delivery O2 Flow Rate FiO2 06/15/17 03:04 97.8 77 20 127/79 (95) 92 Nasal Cannula 1.0 General Appearance: Alert, Awake, No Acute Distress Chest: Other (drain in place with some serosanguinous drainage.) Result Diagram: 06/14/17 0520 06/14/17 0520 Assessment and Plan Problems: (1) Pleural effusion, left Assessment & Plan: will try to place a left pleural catheter to drain effusion and analyze the fluid. 06/15/17 stable, cxr later this morning, will adjust catheter if necessary. Exam Sepsis Risk: No Definite Risk NATHALIE CERNA MD Jun 15, 2017 05:34
[2017-06-15 06:14] LABS: PLATELET COUNT, AUTOMATED 302 K/uL (150-450)
--- NOTE | 2017-06-15 06:32 | RADIOLOGY IMAGING REPORT ---
FACILITY: [facility] - [place] PATIENT NAME: Kip Coats : 1970 MR: [id number] V: [id number] EXAM DATE: ORDERING PHYSICIAN: NATHALIE CERNA TECHNOLOGIST: Location: [facility] Patient: Kip Coats : 1970 Visit/Account:[id number] Date of Sevice: 06/15/2017 CHEST PA AND LAT COMPARISONS: Single view chest dated June 14, 2017 ADDITIONAL PERTINENT HISTORY: Left-sided effusion FINDINGS: Life-support: Left basilar pigtail catheter in stable position. Cardiomediastinal silhouette: Negative. Pulmonary vasculature: Negative. Lung june: Patchy area of opacity involving the left lung base improved since previous exam likely representing atelectatic change. Pleural spaces: Improved but persistent small left-sided pleural effusion. No pneumothorax noted. Osseous structures: Negative. Surrounding soft tissues: Negative. IMPRESSION: 1. Improved but persistent small left-sided pleural effusion with improving overlying atelectatic sixto nge. 2. No new findings from previous exam. Report Dictated By: Kristian Rosario MD at 06/15/2017 6:24 AM Report E-Signed By: Kristian Rosario MD at 06/15/2017 6:26 AM WSN:[id number]
[2017-06-15 07:15] VITALS: BP 114/75
[2017-06-15] MEDS ORDERED: NS(*) 0.9% 1000 ML BAG 1,000 ML IV PRN (08:30)
--- NOTE | 2017-06-15 08:32 | RADIOLOGY IMAGING REPORT ---
FACILITY: [facility] - [place] PATIENT NAME: Kip Coats : 1970 MR: [id number] V: [id number] EXAM DATE: ORDERING PHYSICIAN: NATHALIE SANDOVAL TECHNOLOGIST: Location: [facility] [place] Patient: Kip Coats : 1970 Visit/Account:[id number] Date of Sevice: 06/14/2017 Exam type: US GUIDANCE FOR THORA/PARA History: chest drain placement Comparison: CT chest June 14, 2017. Findings: Two sonographic images demonstrated a complex fluid collection are submitted for interpretation. Kourtney ges are not labeled although presumably over the left thorax.. A Kristian was placed on the patient's sk in for chest drain placement by Dr. Sandoval. Please see Dr. Sandoval's report for complete detai ls IMPRESSION: 1. As above Report Dictated By: Sakina Naik MD at 06/15/2017 8:25 AM Report E-Signed By: Sakina Naik MD at 06/15/2017 8:28 AM WSN:[email or web address]
[2017-06-15] MEDS: ENOXAPARIN 40 MG/0.4ML SYR SC SCH (09:04)
[2017-06-15] MEDS: predniSONE 20 MG TAB PO SCH (11:10)
[2017-06-15 11:19] VITALS: BP 126/82
[2017-06-15 15:24] VITALS: BP 131/77
--- NOTE | 2017-06-15 17:12 | Hospitalist Progress Note ---
Subjective Progress Notes Subjective The patient states he feels much better today. His pain is markedly improved. Physical Exam Vital Signs Date Time Temp Pulse Resp B/P (MAP) Pulse Ox O2 Delivery O2 Flow Rate FiO2 06/15/17 15:24 97.6 80 20 131/77 (95) 93 Nasal Cannula 1.0 Intake and Output 06/16/17 07:00 Intake Total 940 ml Output Total 225 ml Balance 715 ml Intake Oral 940 ml Output Drainage Total 225 ml # Voids 2 General Appearance: Alert, Awake, No Acute Distress, Afebrile Neuro: No Gross deficits Eyes: PERRLA Cardiovascular: Regular Rate and Rhythm Respiratory: Other (Decreased BS R base and midaxillary line.) GI: Soft and Non-Tender Extremities: Warm, Perfused Psych: Appropriate Mood & Affect Result Diagram: 06/15/1754606/15/17546 Assessment and Plan Problems: (1) Pneumonia Status: Acute Assessment & Plan: On CT it appears that he has a left sided basilar infiltrate and small effusion. He had an elevated WBC. No significant fever today. His pain is markedly improved. He is on Ceftriaxone IV and azithromycin. Re-check labs shows increased WBC count likely due to steroids given .Repeat CXR shows improvement. Will work on deep breathing exercises. (2) Pleurisy Status: Acute Assessment & Plan: He presented with pleuritic chest pain that is worse on the left with CT showing a small left sided effusion and infiltrate on the left. There is a small pericardial effusion. His symptoms started about 24 hours prior to admission. No PE seen on CT PA and troponin is negative. ECG with only tachycardia and T flattening inferiorly. He had an URI for 2 days about a week ago. He did have chills and an elevated WBC. He doesn't appear toxic and the pericardial effusion is likely reactive. He is on Morphine MEDICAL SOCIOLOGIST, scheduled Toradol and APAP prn for pain. IV Solu-Medrol given 06/14 and he is now on oral prednisone. Work with RT on getting him to take deep breaths/clear secretions. Time Spent on Plan of Care: < 30 min Exam Sepsis Risk: No Definite Risk VIN LORENZ MD Jun 15, 2017 17:12
[2017-06-15 19:40] VITALS: BP 123/71
[2017-06-15] MEDS: cefTRIAXone 2 GM VIAL IVP SCH (20:40)
[2017-06-15] MEDS: AZITHROMYCIN(*) 500 MG 500 MG in NS(*) 0.9% 250 ML BAG 250 ML IVPB SCH (20:40)
[2017-06-15 22:24] VITALS: BP 142/75
[2017-06-16] VITALS (7 sets, daily range): BP systolic 123–156; BP diastolic 73–96; Ht 182.9 cm; Wt 77.1 kg
[2017-06-16] MEDS: KETOROLAC 30 MG/ML VIAL IVP SCH ×4 (05:44→23:03)
[2017-06-16] MEDS: PROMETHAZINE 25 MG/ML 1 ML AMP IVP PRN (05:52)
--- NOTE | 2017-06-16 06:56 | RADIOLOGY IMAGING REPORT ---
FACILITY: [facility] - [place], [place] PATIENT NAME: Kpi Coats : 1970 MR: [id number] V: [id number] EXAM DATE: ORDERING PHYSICIAN: NATHALIE CERNA TECHNOLOGIST: Location: [facility] Patient: Kip Coats : 1970 Visit/Account:[id number] Date of Sevice: 06/16/2017 CHEST PA AND LAT COMPARISONS: 2 view chest dated June 15, 2017 ADDITIONAL PERTINENT HISTORY: Perfusion FINDINGS: Life-support: Continued findings of a pigtail catheter at the left lung base. This is stable in posit ion. Cardiomediastinal silhouette: Negative. Pulmonary vasculature: Negative. Lung june: Minimal atelectatic change at the left lung base. Pleural spaces: Continued findings of a small left-sided pleural effusion. No pneumothorax. Osseous structures: Negative. Surrounding soft tissues: Negative. IMPRESSION: 1. No significant change since previous exam except for interval improvement in left basilar atelecta tic change. Report Dictated By: Kristian Rosario MD at 06/16/2017 6:50 AM Report E-Signed By: Kristian Rosario MD at 06/16/2017 6:51 AM WSN:[id number]
[2017-06-16 07:04] LABS: PLATELET COUNT, AUTOMATED 321 K/uL (150-450)
[2017-06-16] MEDS: predniSONE 20 MG TAB PO SCH (08:41)
[2017-06-16] MEDS: ENOXAPARIN 40 MG/0.4ML SYR SC SCH (08:42)
--- NOTE | 2017-06-16 08:55 | General Surgery Progress Note ---
Subjective Progress Notes Subjective no complaints Physical Exam Vital Signs Date Time Temp Pulse Resp B/P (MAP) Pulse Ox O2 Delivery O2 Flow Rate FiO2 06/16/17 06:13 98.8 75 24 156/82 (106) 90 Nasal Cannula 1.0 General Appearance: Alert, Awake Chest: Other (225 cc out in 24 hour. not much overnight) Result Diagram: 06/16/17 0655 06/16/1755 Assessment and Plan Problems: (1) Pleural effusion, left Assessment & Plan: will try to place a left pleural catheter to drain effusion and analyze the fluid. 06/15/17 stable, cxr later this morning, will adjust catheter if necessary. 06/16/17 cxr with left lower atelectasis leave drain in a little longer. Exam Sepsis Risk: No Definite Risk NATHALIE CERNA MD Jun 16, 2017 08:55
--- NOTE | 2017-06-16 11:06 | Hospitalist Progress Note ---
Subjective Progress Notes Subjective This patient was admitted for pneumonia and pleural effusion. He had no acute events overnight. Patient Complains of: Cardiovascular: No: Chest Pain Respiratory: No: Shortness of Breath Physical Exam Vital Signs Date Time Temp Pulse Resp B/P (MAP) Pulse Ox O2 Delivery O2 Flow Rate FiO2 06/16/17 09:44 20 91 06/16/17 09:00 Nasal Cannula 1.0 06/16/17 06:13 98.8 75 156/82 (106) Intake and Output 06/17/17 07:00 Intake Total 510 ml Balance 510 ml Intake Oral 510 ml Neuro: No Gross deficits Eyes: PERRLA Cardiovascular: Regular Rate and Rhythm Respiratory: Clear to Auscultation Result Diagram: 06/16/1755 06/16/17654 Item Value Date Time Body Fluid Culture - Preliminary Resulted 06/14/171957 Pleural Fluid NO GROWTH AFTER 1 DAY, REINCUBATED Imaging Chest x-ray reviewed. Assessment and Plan Problems: (1) Bacterial pneumonia Assessment & Plan: He did present with pleurisy and was found to have a pneumonia with a loculated pleural effusion. He has been on empiric treatment with ceftriaxone and azithromycin. Blood cultures and pleural fluid cultures have been negative. (2) Pleural effusion Assessment & Plan: Dr. Sandoval did place a drain in the left lung. Exam Sepsis Risk: Sepsis Risk RAVEN MORFIN DO Jun 16, 2017 11:06
[2017-06-16] MEDS: cefTRIAXone 2 GM VIAL IVP SCH (19:50)
[2017-06-16] MEDS: AZITHROMYCIN(*) 500 MG 500 MG in NS(*) 0.9% 250 ML BAG 250 ML IVPB SCH (21:26)
[2017-06-17] VITALS (7 sets, daily range): BP systolic 117–134; BP diastolic 70–95
[2017-06-17] MEDS: KETOROLAC 30 MG/ML VIAL IVP SCH (05:33)
[2017-06-17] MEDS ORDERED: NAPROXEN 500 MG TAB PO PRN (08:30)
[2017-06-17] MEDS: ENOXAPARIN 40 MG/0.4ML SYR SC SCH (09:12)
[2017-06-17] MEDS: predniSONE 20 MG TAB PO SCH (09:12)
[2017-06-17] MEDS: APAP/HYDROCODONE 325/5 TAB PO PRN ×2 (10:44→21:47)
--- NOTE | 2017-06-17 11:06 | RADIOLOGY IMAGING REPORT ---
FACILITY: [facility] PATIENT NAME: Kip Coats : 1970 MR: [id number] V: [id number] EXAM DATE: ORDERING PHYSICIAN: MC UMANZOR TECHNOLOGIST: Location: [facility] - [place] Patient: Kip Coats : 1970 Visit/Account:[id number] Date of Sevice: 06/17/2017 Exam type: CHEST SINGLE AP History: evaluate left effusion Comparison: 06/16/2017. Findings: Reidentified is a chest tube at the left lung base. The left-sided pleural effusion has resolved with some mild atelectasis the left lung base. No appreciable pneumothorax. Right lung is well-expanded a nd clear. Heart size is normal. Osseous structures are unremarkable. IMPRESSION: 1. No significant interval change from prior exam. Left inferior chest tube is unchanged in position and there is no residual left-sided pleural effusion. 2. Persistent mild atelectasis at left lung base. Report Dictated By: Addison Chiang MD at 06/17/2017 11:00 AM Report E-Signed By: Addison Chiang MD at 06/17/2017 11:02 AM WSN:[id number]
[2017-06-17] MEDS: PROMETHAZINE 25 MG/ML 1 ML AMP IVP PRN (12:33)
--- NOTE | 2017-06-17 13:30 | General Surgery Progress Note ---
Subjective Progress Notes Subjective Pt reports chills, sweats, feeling hot, and nausea. Denies SOB or chest pain. Physical Exam Vital Signs Date Time Temp Pulse Resp B/P (MAP) Pulse Ox O2 Delivery O2 Flow Rate FiO2 06/17/17 12:00 98.0 69 22 117/80 (92) 91 Room Air 06/16/17 09:00 1.0 Intake and Output 06/18/17 07:00 Intake Total 120 ml Output Total 0 ml Balance 120 ml Intake Oral 120 ml Output Drainage Total 0 ml General Appearance: Alert, Awake, No Acute Distress Neuro: No Gross deficits Cardiovascular: Normal Rhythm & Peripheral Pulses, Regular Rate and Rhythm Respiratory: No Respiratory Distress, Clear to Auscultation, Other (chest tube intact with minimal serosang drainage overnight) GI: Soft and Non-Tender Musculoskeletal: No Weakness/Pain Extremities: Soft and Non Tender, Pulses, Perfused Integumentary: Skin Intact without Lesion / Mass Psych: Alert & Oriented X3, Appropriate Mood & Affect Result Diagram: 06/16/17 0655 06/16/17 0655 Imaging CXR from this am reviewed without gross abnormality, no significant effusion. Assessment and Plan Problems: (1) Pleural effusion, left Status: Acute Assessment & Plan: will try to place a left pleural catheter to drain effusion and analyze the fluid. 06/15/17 stable, cxr later this morning, will adjust catheter if necessary. 06/16/17 cxr with left lower atelectasis leave drain in a little longer. 06/17/2017 Stable resp status and CXR. Left chest pigtail removed without difficulty. Pt tolerated well. With new chills etc reported this am, Internal med team may assess for the flu. Stable for DC in several hour interval from our point if medical evaluation stable. If pt does stay overnight for further evaluation, recommend repeat CXR in am. Otherwise see Dr Sandoval in one week. Time Spent: > 30 min Exam Sepsis Risk: No Definite Risk MC UMANZOR MD Jun 17, 2017 13:30
--- NOTE | 2017-06-17 14:24 | Hospitalist Progress Note ---
Subjective Progress Notes Subjective Still having pleuritic chest pain. The chest tube was removed this afternoon. He is feeling "hot". Physical Exam Vital Signs Date Time Temp Pulse Resp B/P (MAP) Pulse Ox O2 Delivery O2 Flow Rate FiO2 06/17/17 12:00 98.0 69 22 117/80 (92) 91 Room Air 06/16/17 09:00 1.0 Intake and Output 06/18/17 07:00 Intake Total 120 ml Output Total 0 ml Balance 120 ml Intake Oral 120 ml Output Drainage Total 0 ml General Appearance: Alert, Awake Respiratory: Clear to Auscultation Result Diagram: 06/16/1765406/16/17654 Assessment and Plan Problems: (1) Bacterial pneumonia Assessment & Plan: He did presented with severe pleuritic chest pain. He had a left sided pneumonia with a small pleural effusion by CT. Repeat CT showed and enlargement of the pleural fluid and findings consistent with a loculated pleural effusion. He has been on empiric treatment with ceftriaxone and azithromycin. Blood cultures and pleural fluid cultures have been negative. He is afebrile. BP/P stable. CRP/CBC/CMP tomorrow. (2) Pleural effusion Assessment & Plan: Dr. Sandoval placed a drain in the left lung on 06/14. It was removed on 06/17. CXR in the morning. Exam Sepsis Risk: No Definite Risk LOU JOHNSON MD Jun 17, 2017 14:24
[2017-06-17] MEDS: cefTRIAXone 2 GM VIAL IVP SCH (20:17)
[2017-06-17] MEDS: AZITHROMYCIN(*) 500 MG 500 MG in NS(*) 0.9% 250 ML BAG 250 ML IVPB SCH (20:17)
--- NOTE | 2017-06-18 06:40 | RADIOLOGY IMAGING REPORT ---
FACILITY: [facility] - [place] PATIENT NAME: Kip Coats : 1970 MR: [id number] V: [id number] EXAM DATE: ORDERING PHYSICIAN: LOU JOHNSON TECHNOLOGIST: Location: [facility] Patient: Kip Coats : 1970 Visit/Account:[id number] Date of Sevice: 06/18/2017 EXAMINATION: PA and Lateral Chest 06/18/2017 6:00 AM HISTORY: pleural effusion COMPARISON: 06/17/2017 FINDINGS: Cardiomediastinal contours: Normal Lungs and pleura: Small caliber left chest tube has been removed. Small left effusion present. Minima l basilar atelectasis. No pneumothorax. Bones/soft tissues: Normal IMPRESSION: Small-caliber left chest tube has been removed. Small left effusion is present. Report Dictated By: Juan Obregon MD at 06/18/2017 6:34 AM Report E-Signed By: Juan Obregon MD at 06/18/2017 6:36 AM WSN:[id number]
[2017-06-18 06:42] LABS: PLATELET COUNT, AUTOMATED 315 K/uL (150-450)
[2017-06-18] MEDS ORDERED: LEVOFLOXACIN/D5W 750 MG/150 ML 150 ML IVPB SCH (10:25)
--- NOTE | 2017-06-18 10:33 | General Surgery Progress Note ---
Subjective Progress Notes Subjective reports mild Left flank pain, no SOB, up in room/halls without difficulty Physical Exam Vital Signs Date Time Temp Pulse Resp B/P (MAP) Pulse Ox O2 Delivery O2 Flow Rate FiO2 06/18/17 03:40 97.7 06/17/17 23:33 98 12 131/76 (94) 91 Room Air 06/16/17 09:00 1.0 General Appearance: Alert, Awake, No Acute Distress, Other (temp spike noted overnight) Neuro: No Gross deficits Cardiovascular: Normal Rhythm & Peripheral Pulses Respiratory: No Respiratory Distress, Clear to Auscultation, Other (chest tube site clean and dry) GI: Soft and Non-Tender Musculoskeletal: No Weakness/Pain Integumentary: Skin Intact without Lesion / Mass Psych: Alert & Oriented X3, Appropriate Mood & Affect Result Diagram: 06/18/1761306/18/17613 Assessment and Plan Problems: (1) Pleural effusion, left Status: Acute Assessment & Plan: will try to place a left pleural catheter to drain effusion and analyze the fluid. 06/15/17 stable, cxr later this morning, will adjust catheter if necessary. 06/16/17 cxr with left lower atelectasis leave drain in a little longer. 06/17/2017 Stable resp status and CXR. Left chest pigtail removed without difficulty. Pt tolerated well. With new chills etc reported this am, Internal med team may assess for the flu. Stable for DC in several hour interval from our point if medical evaluation stable. If pt does stay overnight for further evaluation, recommend repeat CXR in am. Otherwise see Dr Sandoval in one week. 06/18/2017 Clinically stable. AM CXR reviewed and small effusion not unexpected. All cultures NTD. OK for DC from surgical standpoint. Will need close out pt follow up with PCP. See Dr Sandoval in one week. Time Spent: < 30 min Exam Sepsis Risk: No Definite Risk MC UMANZOR MD Jun 18, 2017 10:33
[2017-06-18 11:00] VITALS: BP 123/82
[2017-06-18] MEDS: ENOXAPARIN 40 MG/0.4ML SYR SC SCH (11:14)
[2017-06-18] MEDS: predniSONE 20 MG TAB PO SCH (11:14)
[2017-06-18] MEDS: LEVOFLOXACIN 750 MG TAB PO SCH (12:26)
--- NOTE | 2017-06-18 14:44 | Hospitalist Progress Note ---
Subjective Progress Notes Subjective The patient had fever to 102 axillary last night at about 2100. Today he has some left chest wall pain. No further fever. Physical Exam Vital Signs Date Time Temp Pulse Resp B/P (MAP) Pulse Ox O2 Delivery O2 Flow Rate FiO2 06/18/17 11:00 97.1 91 24 123/82 (96) 92 Room Air 06/16/17 09:00 1.0 Intake and Output 06/19/17 07:00 Intake Total 500 ml Balance 500 ml Intake Oral 500 ml # Voids 1 # Bowel Movements 1 General Appearance: Alert, Awake, No Acute Distress Neuro: No Gross deficits Eyes: PERRLA Cardiovascular: Regular Rate and Rhythm Respiratory: Other (Some decreased BS R midaxillary line. ) GI: Soft and Non-Tender Extremities: Warm, Perfused Psych: Appropriate Mood & Affect Result Diagram: 06/18/1761306/18/17613 Assessment and Plan Problems: (1) Bacterial pneumonia Assessment & Plan: He did presented with severe pleuritic chest pain. He had a left sided pneumonia with a small pleural effusion by CT. Repeat CT showed and enlargement of the pleural fluid and findings consistent with a loculated pleural effusion. He has been on empiric treatment with ceftriaxone and azithromycin. Will switch to oral Levaquin today. Blood cultures and pleural fluid cultures have been negative. He did have fever last night. BP/P stable. CRP improved. (2) Pleural effusion Assessment & Plan: Dr. Sandoval placed a drain in the left lung on 06/14. It was removed on 06/17. CXR not significantly changed. Fever last pm. Will watch today. Time Spent on Plan of Care: < 30 min Exam Sepsis Risk: No Definite Risk VIN LORENZ MD Jun 18, 2017 14:44
[2017-06-18 15:12] VITALS: BP 125/84
[2017-06-18 19:36] VITALS: BP 122/82
[2017-06-18 23:56] VITALS: BP 110/81
[2017-06-19 04:34] VITALS: BP 112/71
[2017-06-19 06:21] LABS: PLATELET COUNT, AUTOMATED 362 K/uL (150-450)
[2017-06-19 07:51] VITALS: BP 113/74
[2017-06-19] MEDS ORDERED: LEVO750T27 PO (08:33)
[2017-06-19] MEDS ORDERED: PRED-1 PO (08:33)
[2017-06-19] MEDS ORDERED: LOR5/325 PO (08:33)
--- NOTE | 2017-06-19 08:39 | Hospitalist Depart ---
Discharge Summary Reason for Hosp/Final Diag: (1) Bacterial pneumonia Hospital Course & Plan: The patient presented with severe pleuritic chest pain. He had a left sided pneumonia with a small pleural effusion by CT. Repeat CT showed and enlargement of the pleural fluid and findings consistent with a loculated pleural effusion. A chest catheter was placed (see below). He was placed on empiric treatment with ceftriaxone and azithromycin. He was then switched to oral Levaquin. Blood cultures and pleural fluid cultures were negative. He will be discharged with Levaquin to complete a 10 day course of antibiotics. He will be discharged with #10 Lortab for pain as well. (2) Pleural effusion Hospital Course & Plan: Dr. Sandoval placed a drain in the left pleural cavity on 06/14. It was removed on 06/17. Fluid was cultured and was negative. (3) Elevated LFTs Status: Acute Hospital Course & Plan: The patient did develop elevation of his LFTs which was felt to most likely be due to ceftriaxone. He was asymptomatic with this. Ceftriaxone was stopped and he was converted to oral Levaquin. He will need to have repeat LFTs as an outpatient. Departure Weight (Pounds): 169 Weight (Ounces): 15.0 Result Diagram: 06/19/17 0541 06/19/17 0541 Item Value Date Time Sodium Level 135 mmol/L L 06/13/17 1547 Potassium Level 3.7 mmol/L 06/13/17 1547 Chloride Level 99 mmol/L 06/13/17 1547 Carbon Dioxide Level 23 mmol/L 06/13/17 1547 Blood Urea Nitrogen 16 mg/dl 06/13/17 1547 Creatinine 1.00 mg/dl 06/13/17 1547 Glomerular Filtration Rate Calc > 60.0 06/13/17 1547 Random Glucose 120 mg/dl H 06/13/17 1547 Calcium Level 9.0 mg/dl 06/13/17 1547 Total Bilirubin 1.5 mg/dl H 06/13/17 1547 Aspartate Amino Transf (AST/SGOT) 23 U/L 06/13/17 1547 Alanine Aminotransferase (ALT/SGPT) 54 U/L 06/13/17 1547 Alkaline Phosphatase 95 U/L 06/13/17 1547 Troponin I < 0.012 ng/ml 06/13/17 1547 C-Reactive Protein 18.7 mg/dl H 06/14/17 0520 Total Protein 8.3 gm/dl H 06/13/17 1547 Albumin 4.5 g/dl 06/13/17 1547 Calcium Level 9.0 mg/dl 06/19/17 0541 Total Bilirubin 0.6 mg/dl 06/19/17 0541 Aspartate Amino Transf (AST/SGOT) 55 U/L H 06/19/17 0541 Alanine Aminotransferase (ALT/SGPT) 144 U/L H 06/19/17 0541 Alkaline Phosphatase 159 U/L H 06/19/17 0541 C-Reactive Protein 5.2 mg/dl H 06/18/17 0614 Total Protein 6.5 gm/dl 06/19/17 0541 Albumin 3.3 g/dl L 06/19/17 0541 Influenza Type A Antigen Negative 06/13/17 1550 Influenza Type B Antigen Negative 06/13/17 1550 Urine Color Yellow 06/13/17 1822 Urine Clarity Clear 06/13/17 1822 Urine pH 6.0 pH 06/13/17 1822 Urine Specific [place] 1.027 06/13/17 1822 Urine Protein Negative mg/dL 06/13/17 1822 Urine Glucose (UA) Negative mg/dL 06/13/17 1822 Urine Ketones Negative mg/dL 06/13/17 1822 Urine Blood Negative 06/13/17 1822 Urine Nitrite Negative 06/13/17 1822 Urine Bilirubin Negative 06/13/17 1822 Urine Urobilinogen Negative mg/dL 06/13/17 1822 Urine Leukocyte Esterase Negative 06/13/17 1822 Urine RBC <1 /HPF 06/13/17 1822 Urine WBC 1 /HPF 06/13/17 1822 Urine Squamous Epithelial Cells None /LPF 06/13/17 1822 Urine Bacteria Negative /HPF 06/13/17 1822 Urine Mucus Few /HPF 06/13/17 1822 Pleural fluid and blood cultures negative. Imaging FACILITY: [facility] PATIENT NAME: Lindsay Coats : 1970 MR: [id number] V: [id number] EXAM DATE: ORDERING PHYSICIAN: HERON COLÓN TECHNOLOGIST: Location: [facility] Patient: Lindsay Coats : 1970 Visit/Account:[id number] Date of Sevice: 06/13/2017 EXAMINATION: CTA of the chest with IV contrast HISTORY: Evaluate for pulmonary embolism. Tachycardia. Abnormal EKG. COMPARISON: None. TECHNIQUE: Pulmonary embolus protocol - Thin-slice axial imaging of the chest was performed during maximal pulmonary arterial opacification with intravenous nonionic iodinated contrast. 3D coronal slab MIPs and 2D reconstructions in the coronal and sagittal planes were performed to aid in pulmonary embolus detection. Rake Operator images have been stored on PACS. CONTRAST: 150 mL of IV [id number] One of the following dose optimization techniques was utilized in the performance of this exam: Automated exposure control; adjustment of the mA and/ or kV according to the patient's size; or use of an iterative reconstruction technique. Specific details can be referenced in the facility's radiology CT exam operational policy. FINDINGS: CTA CHEST: Please note that this exam is optimized for assessment of the pulmonary arteries and is not intended as a diagnostic study of the thoracic aorta, coronary arteries or venous structures. Angiographic Findings: Pulmonary arteries: Images are degraded by respiratory motion artifact and mixing artifact, despite repeat attempt. No definite filling defect is seen within the pulmonary arteries. Other vasculature: Negative. Additional non-angiographic findings: Lungs / Pleura: Small left pleural effusion measuring 2.7 cm in thickness. Atelectasis in the left lung base along the pleural effusion. Mediastinum / Lou: Negative. Heart / Pericardium: Small pericardial effusion. Musculoskeletal / Body wall: Negative. Lymph node assessment: Negative. Upper abdomen: Negative. Lower neck: Negative. IMPRESSION: Images are degraded by motion artifact and contrast mixing artifact which limits evaluation. No definite evidence of pulmonary embolism. Small left pleural effusion with atelectasis in the adjacent left lung base. Underlying infiltrate/pneumonia in the left lung base is not excluded. Small pericardial effusion. Report Dictated By: Claudio Rubi MD at 06/13/2017 5:52 PM Report E-Signed By: Claudio Rubi MD at 06/13/2017 6:15 PM WSN:[id number] FACILITY: [facility] PATIENT NAME: Lindsay Coats : 1970 MR: [id number] V: [id number] EXAM DATE: ORDERING PHYSICIAN: DESI LORENZ TECHNOLOGIST: Location: [facility] Patient: Lindsay Coats : 1970 Visit/Account:[id number] Date of Sevice: 06/14/2017 EXAMINATION: CT chest without IV contrast HISTORY: Empyema, left chest pain. TECHNIQUE: Axial CT images of the chest were obtained without IV contrast, with coronal and sagittal 2D reconstructed images. One of the following dose optimization techniques was utilized in the performance of this exam: Automated exposure control; adjustment of the mA and/ or kV according to the patient's size; or use of an iterative reconstruction technique. Specific details can be referenced in the facility's radiology CT exam operational policy. COMPARISON: Chest radiograph of earlier today. CTA chest with contrast 06/13/2017. FINDINGS: Lungs and pleura: There is a complex loculated pleural fluid collection in the posterior left chest, increased in volume from the prior CT of yesterday. This measures up to 4.5 cm in AP thickness posterior to the left lower lobe, extending from the lung base superior to the level of the major fissure. No visualized pleural gas. There is adjacent consolidation and volume loss in the left lower lobe which may represent a combination of atelectasis and pneumonia. The central airways are patent. There is mild streaky and linear opacity in the right lung base, likely atelectasis, with a trace amount of right-sided pleural fluid. No pneumothorax. Mediastinum and lou: Negative. Heart, aorta, and great vessels: Normal caliber thoracic aorta. Normal heart size. No pericardial effusion. Chest lymph node assessment: Negative. Bones: Negative. Chest wall: Negative. Lower neck: Negative. Upper abdomen: Fatty infiltration of the liver. IMPRESSION: 1. Complex loculated pleural fluid collection in the posterior left chest. This may be compatible with empyema as clinically reported. Volume of pleural fluid has moderately increased since the prior chest CTA. 2. Adjacent consolidation and volume loss in the left lower lobe may represent a combination of compressive atelectasis and pneumonia. 3. Mild streaky and linear opacity in the right lung base, likely atelectasis, with a trace amount of right-sided pleural fluid. Report Dictated By: Michael Hsu MD at 06/14/2017 9:04 PM Report E-Signed By: Michael Hsu MD at 06/14/2017 9:11 PM WSN:[id number] EKG FACILITY: [facility] PATIENT NAME: LINDSAY PRAKASH: [id number] MR: [id number] V: [id number] EXAM DATE: ORDERING PHYSICIAN: HERON COLÓN TECHNOLOGIST: Test Reason : CARDIA Blood Pressure : / mmHG Vent. Rate : 105 BPM Atrial Rate : 105 BPM P-R Int : 212 ms QRS Dur : 104 ms QT Int : 336 ms P-R-T Axes : 046 002 018 degrees QTc Int : 444 ms Sinus tachycardia with 1st degree AV block Otherwise normal ECG No previous ECGs available Confirmed by LOU JOHNSON ([id number]) on 06/14/2017 6:38:58 AM Referred By: Confirmed By:LOU JOHNSON [id number] T: PETELARS/ Condition: Improved Discharge: Home, Self Care Time Spent: < 30 min Discharge Instructions Home Meds Active Scripts Prednisone 10 Mg Tab (PREDNISONE 10 MG TAB) 10 Mg Tablet, 10 MG PO QDAY for 4 Days, #4 TAB Prov:VIN LORENZ MD 06/19/17 Levofloxacin 750 Mg Tab (LEVOFLOXACIN 750 MG TAB) 750 Mg Tablet, 750 MG PO QDAY@ 1100, #2 TAB Prov:VIN LORENZ MD 06/19/17 Hydrocodone Bit/Acetaminophen (HYDROCODON-ACETAMINOPHEN 5-325) 1 Each Tablet, 1- 2 EACH PO Q4H Y for PAIN, #10 TAB Prov:VIN LORENZ MD 06/19/17 Follow up Referrals: Family Practice - In One Week with Dr. Omayra Paez Diet: Regular Activity: As Tolerated Special Instructions: The patient would like to follow up with Dr. Paez. He should make an appointment for 7-10 days for recheck. Copies to: OMAYRA PAEZ DO Venous Thromboembolism Antithrombotics Is Pt On Any Antithrombotics?: No VIN LORENZ MD Jun 19, 2017 08:39
[2017-06-19] MEDS: predniSONE 20 MG TAB PO SCH (10:03)
[2017-06-19] MEDS: ENOXAPARIN 40 MG/0.4ML SYR SC SCH (10:03)
[2017-06-19] MEDS: LEVOFLOXACIN 750 MG TAB PO SCH (10:03)
== END 2017-06-19 11:50 | disposition home or self-care (01) | DRG 194 ==
LOC: ER 15:44 → UNDOADMOB 19:27 → MED 19:27 → OBSVTOIN 19:27 → INTOOBSV 19:27
PROVIDERS: ADMIT Internal Medicine; ATTEND Internal Medicine
PROC: 0W9B30Z Drainage of Left Pleural Cavity with Drainage Device, Percutaneous Approach (ICD-10-PCS; principal; 2017-06-14)
DX: J15.9 Unspecified bacterial pneumonia (principal); J98.11 Atelectasis; J91.8 Pleural effusion in other conditions classified elsewhere; R00.0 Tachycardia, unspecified; R79.89 Other specified abnormal findings of blood chemistry; T36.1X5A Adverse effect of cephalosporins and other beta-lactam antibiotics, initial encounter; Y92.230 Patient room in hospital as the place of occurrence of the external cause
CPT/HCPCS: 36415; 71045; 71046; 71250; 71275; 81001; 82040; 82247; 82310; 82374; 82435; 82565; 82947; 83605; 84075; 84132; 84155; 84295; 84450; 84460; 84484; 84520; 85025; 86140; 87040; 87071; 87073; 87502; 93005; 94667; 96361; 96374; 96375; 96376; 99285; A7048; J0456; J0696; J1170; J1650; J1885; J2270; J2405; J2550; J2930; J3010; J7030; J7050; J7512; Q9967

== ENCOUNTER → 2017-07-17 | Outpatient (CLI) | payer SELFPAY ==
[2017-06-16 12:54] VITALS: BMI 24.9
[~2017-07-17] MED LIST: LEVO750T27 PO; LOR5/325 PO; PRED-1 PO
--- NOTE | 2017-07-17 10:41 | RADIOLOGY IMAGING REPORT ---
FACILITY: [facility] PATIENT NAME: Kip Coats : 1970 MR: [id number] V: [id number] EXAM DATE: ORDERING PHYSICIAN: MORAIMA VÁSQUEZ TECHNOLOGIST: Location: [facility] [place] Patient: Kip Coats : 1970 Visit/Account:[id number] Date of Sevice: 07/17/2017 CHEST PA AND LAT HISTORY: Chest pain COMPARISON: 06/18/2017 FINDINGS: Cardiomediastinal contours: Normal Lungs and pleura: Stable mild blunting left costophrenic angle. Stable linear left parenchymal opaci ties. No pneumothorax. Bones/soft tissues: Normal Other findings: None significant IMPRESSION: 1. Stable small left pleural effusion. 2. Decreasing linear left parenchymal opacities. Report Dictated By: Nba Nichols MD at 07/17/2017 10:36 AM Report E-Signed By: Nba Nichols MD at 07/17/2017 10:37 AM WSN:[id number]
== END ==
LOC: RAD 09:35
PROVIDERS: ATTEND Family Medicine
DX: J90 Pleural effusion, not elsewhere classified (principal)
CPT/HCPCS: 71046